=== PATIENT | male | born 1995 | race Caucasian/White ===

== ENCOUNTER 2023-12-21 09:20 | Emergency (ER) | payer OTHER ==
[~2023-12-21] VITALS: Ht 180.3 cm; Wt 90.7 kg
[2023-12-21 09:32] VITALS: BP 141/83; PULSE 76; RESP 18; TEMP 98.2; O2SAT 99
[2023-12-21 11:50] VITALS: BP 138/87; PULSE 86; RESP 18; TEMP 98.3; O2SAT 97
[2023-12-21] MEDS ORDERED: MORPHINE SULFATE 4 MG/ML SYR IVP ONE (12:10)
[2023-12-21] MEDS ORDERED: TRAM-748 PO (13:10)
== END 2023-12-21 13:30 | disposition home or self-care (01) ==
LOC: MED 09:20
DX: S92.341A Displaced fracture of fourth metatarsal bone, right foot, initial encounter for closed fracture (principal); Z79.899 Other long term (current) drug therapy; V23.49XA Other motorcycle driver injured in collision with car, pick-up truck or van in traffic accident, initial encounter; Y93.89 Activity, other specified; Y92.410 Unspecified street and highway as the place of occurrence of the external cause; Y99.8 Other external cause status
CPT/HCPCS: 73630; 99284

== ENCOUNTER 2024-03-06 09:42 | Emergency (ER) | payer OTHER ==
[~2024-03-06] VITALS: Ht 180.3 cm; Wt 86.2 kg
[~2024-03-06 09:42] MED LIST: TRAM-748 PO
[2024-03-06 09:56] VITALS: BP 128/80; PULSE 95; RESP 20; TEMP 99.1; O2SAT 99
[2024-03-06] MEDS: KETOROLAC 60 MG/2 ML VIAL IM ONE (11:17)
[2024-03-06] MEDS ORDERED: ACET-8905 PO (12:23)
[2024-03-06] MEDS ORDERED: IBUP-2213 PO (12:23)
[2024-03-06 12:55] VITALS: BP 124/64; PULSE 88; RESP 19; TEMP 98; O2SAT 99
== END 2024-03-06 12:58 | disposition home or self-care (01) ==
LOC: MED 09:42
DX: M25.521 Pain in right elbow (principal); F12.90 Cannabis use, unspecified, uncomplicated; Z79.899 Other long term (current) drug therapy; V49.88XA Car occupant (driver) (passenger) injured in other specified transport accidents, initial encounter; Y93.89 Activity, other specified; Y92.89 Other specified places as the place of occurrence of the external cause; Y99.8 Other external cause status
CPT/HCPCS: 73080; 96372; 99283; J1885; 90715

== ENCOUNTER 2024-03-10 19:45 | Emergency (ER) | payer OTHER ==
[~2024-03-10] VITALS: Ht 180.3 cm; Wt 86.2 kg
[~2024-03-10 19:45] MED LIST changes: +ACET-8905 PO; +IBUP-2213 PO
[2024-03-10 20:22] VITALS: BP 124/75; PULSE 6; RESP 16; TEMP 97.4; O2SAT 100
[2024-03-10 21:25] LABS: BASOPHILS % (AUTO) 0.7 % (0.0-2.0); EOSINOPHILS # (AUTO) 0.1 K/uL (0-0.4); EOSINOPHILS % (AUTO) 1.2 % (0.0-4.0); HEMATOCRIT 37.2 % (36-52); HEMOGLOBIN 12.3 g/dL (12.0-18.0); LYMPHOCYTES # (AUTO) 2.3 K/uL (2.0-11.5); LYMPHOCYTES % (AUTO) 46.5 % (20.5-51.1); MEAN CORPUSCULAR HEMOGLOBIN 28 pg (27-31); MEAN CORPUSCULAR HGB CONC 33 g/dL (33-37); MEAN CORPUSCULAR VOLUME 83.3 fL (80-94); MONOCYTES # (AUTO) 0.4 K/uL (0.8-1.0); MONOCYTES % (AUTO) 8.7 % (1.7-9.3); NEUTROPHILS # (AUTO) 2.1 K/uL (1.8-7.7); NEUTROPHILS % (AUTO) 42.9 % (42.2-75.2); PLATELET COUNT (AUTO) 184 K/uL (140-450); RED BLOOD CELL COUNT(AUTO) 4.47 MIL/uL (4.20-6.10); RED CELL DISTRIBUTION WIDTH 14.1 % (11.6-13.7)
[2024-03-10 21:43] LABS: ANION GAP 11.8 (8-16); CALCIUM 8.6 mg/dL (8.5-10.1); CREATININE 1.3 mg/dL (0.6-1.3); POTASSIUM 3.8 mmol/L (3.5-5.1)
[2024-03-10] MEDS ORDERED: HEPARIN PER PHARMACY MC STA (22:40)
[2024-03-10 23:06] LABS: INR 0.93 (0.8-1.2); PARTIAL THROMBOPLASTIN TIME 27.5 secs (22-35.6); PROTHROMBIN TIME 9.8 secs (10.8-13.4)
== END 2024-03-10 23:00 | disposition left against medical advice (07) ==
LOC: MED 19:45
DX: M79.601 Pain in right arm (principal); R22.31 Localized swelling, mass and lump, right upper limb; Z79.1 Long term (current) use of non-steroidal anti-inflammatories (NSAID)
CPT/HCPCS: 36415; 73090; 73110; 80048; 82553; 85025; 85610; 85730; 93971; 99284

== ENCOUNTER 2024-03-11 01:30 | Observation (INO) | payer OTHER ==
[~2024-03-11] VITALS: Ht 180.3 cm; Wt 86.2 kg
[2024-03-11 02:05] VITALS: BP 134/72; PULSE 66; RESP 16; TEMP 96.5; O2SAT 99
[2024-03-11] MEDS ORDERED: HEPARIN PER PHARMACY MC STA (02:30)
[2024-03-11] MEDS ORDERED: HEPARIN PER PHARMACY MC PRN ×2 (03:05→12:45)
[2024-03-11] MEDS: hePARIN / DEXT 5% PREMIX 250 ML IV SCH (05:10)
[2024-03-11] MEDS ORDERED: MAGNESIUM OXIDE 400 MG TAB PO PRN (05:35)
[2024-03-11] MEDS ORDERED: KCL 20 MEQ IN 100 mL PREMIX 200 ML IV PRN (05:35)
[2024-03-11] MEDS ORDERED: ONDANSETRON 4 MG/2 ML VIAL IVP PRN (05:35)
[2024-03-11] MEDS ORDERED: MAG SULF 2000 MG/WATER PREMIX 50 ML IV PRN (05:35)
[2024-03-11] MEDS ORDERED: POTASSIUM CHLORIDE 10 MEQ TABER PO PRN (05:35)
[2024-03-11 08:05] VITALS: PULSE 65; RESP 16; O2SAT 98
[2024-03-11 12:00] VITALS: BP 136/81; PULSE 113; PULSE 60; RESP 18; TEMP 97.8; O2SAT 97
[2024-03-11] MEDS: HYDROcodone/APAP 5/325 MG 1 TAB TAB PO PRN (13:51)
[2024-03-11 16:00] VITALS: BP 135/84; PULSE 56; PULSE 59; RESP 18; TEMP 98.2; O2SAT 97
[2024-03-11 20:00] VITALS: BP 127/78; PULSE 61; PULSE 65; RESP 18; TEMP 98.3; O2SAT 98
[2024-03-11] MEDS: MEDS-TO-BEDS MC SCH (21:34)
[2024-03-11] MEDS ORDERED: oxyCODONE/APAP 5/325 MG 1 TAB TAB PO PRN (23:45)
[2024-03-12] VITALS: BP 111/74; PULSE 47; PULSE 57; RESP 18; TEMP 97.9; O2SAT 99
[2024-03-12 04:00] VITALS: BP 126/72; PULSE 45; PULSE 58; RESP 18; TEMP 97.2; O2SAT 100
[2024-03-12] MEDS: ACETAMINOPHEN 325 MG TAB PO PRN (04:18)
[2024-03-12 07:08] LABS: BASOPHILS % (AUTO) 0.7 % (0.0-2.0); EOSINOPHILS # (AUTO) 0.1 K/uL (0-0.4); HEMATOCRIT 39.6 % (36-52); HEMOGLOBIN 13.3 g/dL (12.0-18.0); LYMPHOCYTES # (AUTO) 1.9 K/uL (2.0-11.5); LYMPHOCYTES % (AUTO) 29.6 % (20.5-51.1); MEAN CORPUSCULAR HEMOGLOBIN 28 pg (27-31); MEAN CORPUSCULAR HGB CONC 33 g/dL (33-37); MEAN CORPUSCULAR VOLUME 83.2 fL (80-94); MONOCYTES # (AUTO) 0.5 K/uL (0.8-1.0); NEUTROPHILS % (AUTO) 61.7 % (42.2-75.2); PLATELET COUNT (AUTO) 186 K/uL (140-450); RED BLOOD CELL COUNT(AUTO) 4.77 MIL/uL (4.20-6.10); RED CELL DISTRIBUTION WIDTH 14.1 % (11.6-13.7); WHITE BLOOD COUNT (AUTO) 6.5 K/uL (4.8-10.8)
[2024-03-12 07:12] LABS: CALCIUM 9.4 mg/dL (8.5-10.1); CARBON DIOXIDE 28.9 mmol/L (21-32); POTASSIUM 3.9 mmol/L (3.5-5.1)
[2024-03-12 07:28] LABS: PHOSPHORUS 4.1 mg/dL (2.5-4.9)
[2024-03-12 08:00] VITALS: BP 134/81; PULSE 48; PULSE 62; RESP 18; TEMP 97.4; O2SAT 99
[2024-03-12] MEDS ORDERED: APIX5TAB PO (10:00)
[2024-03-12 12:00] VITALS: BP 125/70; PULSE 60; RESP 18; TEMP 97.2; O2SAT 100
[2024-03-12 16:46] VITALS: BP 135/71; PULSE 64; RESP 18; TEMP 97.9
== END 2024-03-12 17:43 | disposition left against medical advice (07) ==
LOC: MED 01:30 → MTU 05:35
PROVIDERS: ADMIT Hospitalist; ATTEND Hospitalist
DX: M79.89 Other specified soft tissue disorders (principal); M54.2 Cervicalgia; Z79.899 Other long term (current) drug therapy
CPT/HCPCS: 36415; 70492; 73202; 80048; 83735; 84100; 84484; 85025; 85730; 87081; 93880; 96365; 96366; 96376; 99285; G0378; J1644; Q0092